=== PATIENT | male | born 1940 | race Caucasian/White ===

== ENCOUNTER → 2017-02-04 | Outpatient (CLI) | payer OTHER ==
[2017-02-04 12:42] LABS: CALCIUM 9.2 mg/dl (8.5-10.1)
[2017-02-04 12:47] LABS: BLOOD UREA NITROGEN 20 mg/dl (7-18); BUN/CREATININE RATIO 16.9 (10-20); CARBON DIOXIDE 27 mmol/L (21-32); CHLORIDE 105 mmol/L (98-107); CHOLESTEROL 144 mg/dl (0-200); GLUCOSE 130 mg/dl (70-99); POTASSIUM 3.9 mmol/L (3.5-5.1); SODIUM 139 mmol/L (136-145)
[2017-02-04 12:53] LABS: ESTIMATED AVERAGE GLUCOSE 146 mg/dl; HA1C FLAG Normal (Normal)
[2017-02-04 12:55] LABS: CHOLESTEROL/HDL RATIO 3.6; HDL CHOLESTEROL 40 mg/dl; LDL CHOLESTEROL CALCULATED 41 mg/dl; TRIGLYCERIDES 313 mg/dl (0-150); VERY LOW DENSITY LIPOPROT CALC 63 mg/dl
== END | disposition home or self-care (01) ==
LOC: C.LABPVFM 07:46
PROVIDERS: ATTEND Family Medicine
DX: I10 Essential (primary) hypertension (principal); E78.5 Hyperlipidemia, unspecified; E11.9 Type 2 diabetes mellitus without complications

== ENCOUNTER → 2017-07-12 | Outpatient (CLI) | payer OTHER ==
[2017-07-12 13:53] LABS: ALT/SGPT 24 U/L (12-78); AST/SGOT 14 U/L (15-37); BLOOD UREA NITROGEN 21 mg/dl (7-18); BUN/CREATININE RATIO 16.2 (10-20); CALCIUM 8.7 mg/dl (8.5-10.1); CARBON DIOXIDE 27 mmol/L (21-32); CHLORIDE 106 mmol/L (98-107); GLUCOSE 121 mg/dl (70-99); POTASSIUM 4.1 mmol/L (3.5-5.1); SODIUM 141 mmol/L (136-145)
[2017-07-12 13:57] LABS: ALKALINE PHOSPHATASE 48 U/L (45-117); CHOLESTEROL 150 mg/dl (0-200); CHOLESTEROL/HDL RATIO 4.1; HDL CHOLESTEROL 37 mg/dl; LDL CHOLESTEROL CALCULATED 41 mg/dl; TRIGLYCERIDES 361 mg/dl (0-150); VERY LOW DENSITY LIPOPROT CALC 72 mg/dl
== END | disposition home or self-care (01) ==
LOC: C.LABPVFM 07:27
PROVIDERS: ATTEND Family Medicine
DX: E78.5 Hyperlipidemia, unspecified (principal); E11.9 Type 2 diabetes mellitus without complications; I10 Essential (primary) hypertension

== ENCOUNTER → 2018-01-16 | Outpatient (CLI) | payer OTHER ==
[2018-01-16 13:14] LABS: HEMOGLOBIN A1C 6.9 % (4.5-5.6)
[2018-01-16 13:34] LABS: BLOOD UREA NITROGEN 22 mg/dl (7-18); CALCIUM 9.3 mg/dl (8.5-10.1); CARBON DIOXIDE 28 mmol/L (21-32); CREATININE 1.47 mg/dl (0.60-1.40); GLUCOSE 142 mg/dl (70-99); POTASSIUM 4.4 mmol/L (3.5-5.1); SODIUM 140 mmol/L (136-145)
[2018-01-16 13:38] LABS: CHOLESTEROL 158 mg/dl (0-200); LDL CHOLESTEROL CALCULATED 58 mg/dl
== END | disposition home or self-care (01) ==
LOC: C.LABPVFM 07:08
PROVIDERS: ATTEND Nurse Practitioner
DX: I10 Essential (primary) hypertension (principal); E11.9 Type 2 diabetes mellitus without complications; E78.5 Hyperlipidemia, unspecified; E78.2 Mixed hyperlipidemia

== ENCOUNTER 2025-08-16 15:54 | Inpatient (IN) ==
[2025-08-16 17:00] LABS: Hematocrit (blood only) 44.7 % (42.0-52.0); Hemoglobin 15.0 g/dl (14.0-18.0); Immature Granulocytes # (auto) 0.03 K/uL (0.01-0.20); Immature Granulocytes % (auto) 0.3 %; Mean Corpuscular Hemoglobin 31.8 pg (25.0-34.0); Mean Corpuscular Volume 94.7 fL (80.0-100.0); Platelet Count 223 K/uL (130-400); RDW Standard Deviation 46.2 fL (36.4-46.3); Red Blood Count 4.72 M/uL (4.70-6.10); White Blood Count 9.17 K/ul (4.8-10.8)
--- NOTE | 2025-08-16 17:00 | XRay Report ---
Chest radiograph, one view History: Chest pain Comparison: None Findings: Single AP view of the chest performed. No focal consolidation or pleural effusion. No pneumothorax. The cardiomediastinal silhouette is within normal limits. Normal pulmonary vascularity. No evidence for lymphadenopathy. No visualized bony or soft tissue abnormality. Impression: Normal chest radiograph Electronically signed by Navneet Jauregui 08-16-2025 4:59 PM
[2025-08-16 17:17] LABS: Alanine Aminotransferase 13 U/L (7-52); Albumin Globulin Ratio 1.2 (0.9-2); Albumin Level 4.0 gm/dl (3.4-5.0); Alkaline Phosphatase 58 U/L (34-104); Anion Gap 7 (3-11); Bilirubin,Total 0.3 mg/dl (0.2-1.0); Blood Urea Nitrogen 28 mg/dl (6-23); Calcium 9.5 mg/dl (8.6-10.3); Carbon Dioxide 25 mmol/L (21-32); Chloride 108 mmol/L (98-107); Globulin 3.3 gm/dl (2.5-4.0); Glucose 154 mg/dl (70-99(Fasting)); Potassium 4.5 mmol/L (3.5-5.1); Sodium 140 mmol/L (136-145); Total Protein 7.3 gm/dl (6.0-8.3)
[2025-08-16 17:29] LABS: INR 1.0 (0.9-1.1); Partial Thromboplastin Time 25 Seconds (21-31); Prothrombin Time 10.3 Seconds (9.0-12.0)
--- NOTE | 2025-08-16 18:27 | Emergency Department Note ---
Impression & Plan Chest pain, exertional, Elevated troponin, Hypertension ED Provider Note NAME: PATTY BOBO AGE: 84 SEX: M : 1940 ARRIVES VIA: Walk-In INFORMANT: Patient ED PROVIDER(S): Jalil Martinez MD CHIEF COMPLAINT: Chest/shoulder pain, referred PLAN: Disposition: Admit MEDICAL DECISION MAKING: The patient is a pleasant 84-year-old gentleman with a past medical history of hypertension, hyperlipidemia, BPH who presents to Emergency Department via walk- in for evaluation of left shoulder, arm, chest pain which began this morning when the patient was rearranging furniture on his deck. Patient was concerned and so presented to his outpatient provider who referred him to the emergency department. Patient denies any fevers, chills, cough, congestion. Patient reports that he has had similar episodes in the past several weeks with exertion. He denies chest pain at this time. Of note, the patient did arrive to emergency department during time of high volume, acuity and prolonged emergency department waiting times. Critical pathways initiated from triage. On evaluation the patient is in no distress, afebrile blood pressure 160/90s and vital signs otherwise stable. EKG demonstrates LVH, similar to prior and otherwise without overt acute ischemia. CXR negative for acute cardiopulmonary process per my personal preliminary review/interpretation. WBC, H/H and platelets within the limits. Chemistry without metabolic acidosis. Initial high sensitivity troponin 128 with repeat troponin rising to 350. Full dose aspirin was administered though patient denies chest pain at this time. Given the patient's elevated troponin and report of exertional chest pain he does agree plan for admission for further management. Case was discussed with Dr. Dickson, [facility] hospitalist, who will evaluate the patient for admission. Further management per admitting team. Triage Nursing notes reviewed and agree them. Prior/external medical records reviewed Vital Signs: reviewed Differential diagnosis: Cardiac ischemia, aortic dissection, pulmonary embolism, pneumothorax, pneumonia, pericarditis, myocarditis, esophageal rupture, GERD, cholecystitis, pancreatitis, musculoskeletal, as well as other pathologies. ER treatment provided: See below. Diagnostics interpreted by me: ECG: Normal sinus rhythm, 80 bpm, LVH, no overt ST elevation or depression, QTc 438, QRS 116. Similar to August 04, 2021. Cardiac Monitoring: An order for continuous cardiac monitoring was placed and demonstrated normal sinus rhythm, 80 bpm, no ectopy Laboratory studies: See below Imaging studies: See below Consultation(s): Case was discussed with Dr. Dickson, [facility] hospitalist, who will evaluate the patient for admission. HPI: Per MDM. ROS: See above HPI for pertinent positives & negatives. A total of 10 systems reviewed and were otherwise negative. VITALS:See Below PHYSICAL EXAMINATION: GENERAL: Awake, alert, well-appearing, in no distress HENT: Normocephalic, atraumatic. Oropharynx with dry mucous membranes and otherwise unremarkable. EYES: Normal conjunctiva. Sclera non-icteric. NECK: Supple. No nuchal rigidity. FROM. No JVD. RESPIRATORY: Clear to auscultation. CARDIAC: Regular rate, normal rhythm. Extremities warm and well perfused. Pulses equal. ABDOMEN: Soft, non-distended. No tenderness to palpation. No rebound or guarding. No masses. MUSCULOSKELETAL: Chest examination reveals no tenderness. The back is symmetrical on inspection without obvious abnormality. There is no CVA tenderness to palpation. No joint edema. LOWER EXTREMITIES: Calves are equal size bilaterally and non-tender. No edema. No discoloration. NEURO: Normal sensorium. No sensory or motor deficits noted. SKIN: No rash or jaundice noted. 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 Lai, upcoming appt 08/13/21. Doppler 07/2021 [place] GERD (gastroesophageal reflux disease) Sciatica Surgical History History of surgery VOCAL CORD INJECTION-08/13/21 History of cataract surgery History of arthroscopic knee surgery History of colonoscopy Family History Mother Diabetes COPD (chronic obstructive pulmonary disease) Renal failure Uncle Myocardial infarction Other No family history of adverse response to anesthesia No family history of bleeding disorder Denies family history of Ovarian cancer Prostate cancer Breast cancer Colorectal cancer Social History Smoking Status: Current every day smoker Tobacco Type: Smokeless Tobacco (Dip or Chew) Second Hand Exposure: No; Do You Dip or Chew Tobacco: Yes; Hx Alcohol Use: Yes Hx Substance Use: No Preferred Language: Portuguese Communication Ability: Effective Visual Impairment: No Limitations Hearing Ability: Normal Senior Accounting Specialist Required: No Beliefs That Will Affect Care: None marital status: Current Living Situation: Spouse current occupational status: employed and retired current occupation: self employeed How many Children do You have: 1 Feels Safe at Home: Yes Safety Concerns: Feels Safe At This Time Childhood Exposure to Second-Hand Smoke: Yes Diet: regular caffeine: Yes Dental Care, Regularly: Yes Physical Activity Frequency: Daily Seatbelt Use: always Sunscreen Use: Yes (sometimes) Assistive Devices: Glasses Allergies Allergies Allergy/AdvReac Type Severity Reaction Status Date / Time No Known Allergies Allergy Verified 08/16/25 18:47 Home Meds Home Medications Medication Instructions Recorded Confirmed acetaminophen 325 mg capsule 325 mg PO Q6H PRN Pain 08/28/19 08/16/25 cholecalciferol (vitamin D3) 25 25 mcg PO Q OTHER DAY 12/01/21 08/16/25 mcg (1,000 unit) capsule Previous Rx's Medication Instructions Recorded lancets 30 gauge (Advocate Lancet) #100 ea 04/04/20 blood sugar diagnostic (OneTouch #100 ea 04/23/20 Ultra Blue Test Strip) aspirin 81 mg capsule 81 mg PO DAILY #90 caps 03/08/24 simvastatin 20 mg tablet 20 mg PO QAM #90 tabs 12/12/24 metformin 500 mg tablet 500 mg PO BID 100 days #200 tabs 06/06/25 lisinopril 40 mg tablet 40 mg PO DAILY #90 tabs 07/01/25 Results & Data (ED) Vital Signs Vital Signs - 24 hr 08/16/25 16:11 08/16/25 17:47 08/16/25 17:47 Temperature 36.6 C Temperature Source Temporal Artery Scan Pulse Rate 79 Pulse Rate [Apical] 56 L Respiratory Rate 18 20 Respiratory Effort / Characteristics Non-Labored Spontaneous Respiratory Depth Normal Normal Respiratory Pattern Regular Blood Pressure 169/98 H Blood Pressure [Left Arm] 160/98 H Blood Pressure Mean 121 Blood Pressure Mean [Left Arm] 118 Blood Pressure Position [Left Arm] Semi-fowlers Pulse Oximetry 98 98 98 Oxygen Delivery Method Room Air Room Air Room Air Sepsis Recent Fever Within 48 Hours No Sepsis New/Unexplained Change in Mental Status N/A Sepsis Action Taken by Nursing No Action Required 08/16/25 17:47 08/16/25 17:53 Temperature Temperature Source Pulse Rate 61 Pulse Rate [Apical] Respiratory Rate Respiratory Effort / Characteristics Respiratory Depth Respiratory Pattern Blood Pressure Blood Pressure [Left Arm] Blood Pressure Mean Blood Pressure Mean [Left Arm] Blood Pressure Position [Left Arm] Pulse Oximetry 98 Oxygen Delivery Method Room Air Sepsis Recent Fever Within 48 Hours Sepsis New/Unexplained Change in Mental Status Sepsis Action Taken by Nursing Laboratory Data Attestation: I reviewed the patient's lab results. 08/16/25 16:30 08/16/25 16:30 Lab Results 08/16/25 Range/Units 16:30 WBC 9.17 (4.8-10.8) K/ul RBC 4.72 (4.70-6.10) M/uL Hgb 15.0 (14.0-18.0) g/dl Hct 44.7 (42.0-52.0) % MCV 94.7 (80.0-100.0) fL MCH 31.8 (25.0-34.0) pg MCHC 33.6 (32.0-36.0) g/dL RDW Std Deviation 46.2 (36.4-46.3) fL RDW Coeff of Eunice 13.2 (11.5-14.5) % Plt Count 223 (130-400) K/uL MPV 10.5 (9.4-12.4) fL Immature Gran % (Auto) 0.3 % Neut % (Auto) 65.0 % Lymph % (Auto) 22.5 % Caldwell % (Auto) 6.5 % Eos % (Auto) 4.9 % Baso % (Auto) 0.8 % Neut # (Auto) 5.96 (1.40-6.50) K/uL Lymph # (Auto) 2.06 (1.20-3.40) K/uL Caldwell # (Auto) 0.60 H (0.11-0.59) K/uL Eos # (Auto) 0.45 (0.00-0.50) K/uL Baso # (Auto) 0.07 (0.00-0.20) K/uL Immature Gran # (Auto) 0.03 (0.01-0.20) K/uL PT 10.3 (9.0-12.0) Seconds INR 1.0 (0.9-1.1) APTT 25 (21-31) Seconds PTT Ratio 0.9 Sodium 140 (136-145) mmol/L Potassium 4.5 (3.5-5.1) mmol/L Chloride 108 H (98-107) mmol/L Carbon Dioxide 25 (21-32) mmol/L Anion Gap 7 (3-11) BUN 28 H (6-23) mg/dl Creatinine 1.32 (0.6-1.4) mg/dl Est Cr Clr Drug Dosing Not Reportable eGFR 53.52 BUN/Creatinine Ratio 21.2 H (10-20) Glucose 154 H (70-99(Fasting)) mg/dl Calcium 9.5 (8.6-10.3) mg/dl Magnesium 2.0 (1.7-2.4) mg/dl Total Bilirubin 0.3 (0.2-1.0) mg/dl AST 15 (13-39) U/L ALT 13 (7-52) U/L Alkaline Phosphatase 58 (34-104) U/L Troponin I High Sens 128.8 H* (0-20) pg/ml Total Protein 7.3 (6.0-8.3) gm/dl Albumin 4.0 (3.4-5.0) gm/dl Globulin 3.3 (2.5-4.0) gm/dl Albumin/Globulin Ratio 1.2 (0.9-2) TSH 1.764 (0.300-4.500) uIu/ml Administered Medications Simvastatin (Simvastatin 20 Mg Tab) 20 mg PO PM ANUJA Stop: 09/15/25 23:19 Last Admin: 08/16/25 23:34 Dose: 20 mg Documented By: SMD Discontinued Medications Aspirin (Aspirin Chew 324 Mg) 324 mg PO NOW STA Stop: 08/16/25 18:29 Last Admin: 08/16/25 18:34 Dose: 324 mg Documented By: jdl Imaging Data Radiologist's Impression: Chest X-Ray 08/16/25 16:15 Chest radiograph, one view History: Chest pain Comparison: None Findings: Single AP view of the chest performed. No focal consolidation or pleural effusion. No pneumothorax. The cardiomediastinal silhouette is within normal limits. Normal pulmonary vascularity. No evidence for lymphadenopathy. No visualized bony or soft tissue abnormality. Impression: Normal chest radiograph Electronically signed by Navneet Jauregui 08-16-2025 4:59 PM Discharge Plan Visit Data Chief Complaint: Cardiac Assessment Stated Complaint: PAIN UP AND DOWN ARMS, RN SUGGESTED EKG ED Provider: Jalil Martinez Discharge Problem: Chest pain, exertional, Elevated troponin, Hypertension Patient Disposition: Admitted As Inpatient Condition: Fair Discharge Instructions Interventions: ED Discharge Assessment Last Done: 08/16/25 22:48 Discharge Problem: Hypertension Qualifiers: Hypertension type: unspecified Qualified Code(s): I10 - Essential (primary) hypertension
[2025-08-16] MEDS: ASPIRIN CHEW 324 MG PO STA (18:34)
--- NOTE | 2025-08-16 19:22 | History & Physical Report ---
Date of Service August 16, 2025 Assessment & Plan (1) Elevated troponin: (2) Bilateral arm pain: (3) Type 2 DM with CKD stage 3 and hypertension: (4) Smokeless tobacco use: Plan Patient is an 84-year-old male with past medical history of carotid artery stenosis, GERD, type II DM, CKD stage III, HTN, BPH, tobacco use. Patient presented due to bilateral shoulder pain which has been ongoing for few weeks on exertion however is worse today and occurred at rest. He was referred in by his PCP. Workup in the ED revealed initial troponin 128.8 which up trended to 350.0. EKG without significant ischemic changes, appears to have LVH which is known in the past. He was given aspirin 325 mg p.o. in the ED and is being admitted for further cardiac workup. #BL arm pain/elevated troponin - currently pain free on admission. Trop 128.8 -> 350.0. EKG without significant ischemic changes, appears to have LVH which is known in the past. CXR negative. Heart score 8 = high risk. - K+ 4.5, mag 2.0 - TSH ordered for completeness - ASA chew 325 mg in ED, continue daily baby asa - Heart healthy diet - Troponin q6hr x 3 - lipid panel and A1C with AM labs - stress echocardiogram ordered - monitor on telemetry - EKG with chest pain as needed - will defer Heparin drip on admission - if patient becomes symptomatic significant trop elevation, consider heparin #Type II DMhold metformin, defer SSI as glucose currently stable. A1c with a.m. labs #HTN/HLDcontinue lisinopril, simvastatin, baby aspirin #Nicotine usechewing tobacco daily, declines nicotine patch on admission. VTE ppx: SCDs, low risk Dispo: PCU Admission and Anticipated Discharge Date Admission Date: 08/16/25 History of Present Illness Chief Complaint: cardiac assessment Primary Care Provider: PCP NO Patient is an 84-year-old male with past medical history of carotid artery stenosis, GERD, type II DM, CKD stage III, HTN, BPH, tobacco use. Patient presented due to bilateral shoulder pain that starts in the middle of his back which has been ongoing for few weeks however is worse today. He was referred in by his PCP. Workup in the ED revealed initial troponin 128.8 which up trended to 350.0. EKG without significant ischemic changes, appears to have LVH which is known in the past. He was given aspirin 325 mg p.o. in the ED and is being admitted for further cardiac workup. Patient seen at bedside with his present. He stated that over the past few weeks on exertion he gets bilateral arm pain which typically last for few hours and goes away with rest, even on both arms. He denies any chest pain, dyspnea, or dizziness with this. Today he was working outside to bring in all of the outdoor furniture when he was sitting at rest after and developed the bilateral arm pain. He went to [facility] who referred him to the ED. Patient stated the pain typically last for few hours and is currently relieved at time of admission. He denies any dizziness, lightheadedness, chest pain, dyspnea, dyspnea on exertion, chest pain on exertion, nausea, vomiting, abdominal pain. He does endorse intermittent diarrhea since he has been out of appointment, unchanged. Patient stated he did recently get over a cold, denies any flulike symptoms. He did get his flu and COVID shots 2 weeks ago. He does use chewing tobacco once or twice per day, declines need for nicotine patch at this time. He denies any alcohol use. He denies any personal history or family history of UT, stated his mother did of a heart condition however she was 90. He took all of his morning medications however is due for evening medications which includes statin and metformin. He wishes to be full code however would not want prolonged measures. Allergies Allergy/AdvReac Type Severity Reaction Status Date / Time No Known Allergies Allergy Verified 08/16/25 18:47 Home Medications Medication Instructions Recorded Confirmed Type acetaminophen 325 mg capsule 325 mg PO Q6H PRN Pain 08/28/19 08/16/25 History lancets 30 gauge (Advocate Lancet) #100 ea 04/04/20 12/04/24 Rx blood sugar diagnostic (OneTouch #100 ea 04/23/20 12/04/24 Rx Ultra Blue Test Strip) cholecalciferol (vitamin D3) 25 25 mcg PO Q OTHER DAY 12/01/21 08/16/25 History mcg (1,000 unit) capsule aspirin 81 mg capsule 81 mg PO DAILY #90 caps 03/08/24 08/16/25 Rx simvastatin 20 mg tablet 20 mg PO QAM #90 tabs 12/12/24 08/16/25 Rx metformin 500 mg tablet 500 mg PO BID 100 days #200 tabs 06/06/25 08/16/25 Rx lisinopril 40 mg tablet 40 mg PO DAILY #90 tabs 07/01/25 08/16/25 Rx Past Med/Surg History Problem List (Updated 08/16/25 @ 20:59 by Jalil Martinez MD) Elevated troponin (Acute) Chest pain, exertional (Acute) Bilateral arm pain Elevated troponin Osteoarthritis of left knee Bilateral hip pain Greater trochanteric pain syndrome Hip pain Knee pain 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) Arthritis (Chronic) Carotid stenosis Hyperlipidemia (Acute) BPH (benign prostatic hyperplasia) Multiple renal cysts Lightheaded Acquired deviated nasal septum Smokeless tobacco use (Acute) Elevated triglycerides with high cholesterol (Acute) Vitamin D deficiency Laryngitis, acute Dysphagia Oropharyngeal aspiration Pulmonary nodule Paralysis of left vocal cord Medical History Lyme borreliosis Encounter for pre-operative examination Osteoarthritis Carotid artery stenosis GERD (gastroesophageal reflux disease) Sciatica Surgical History History of surgery History of cataract surgery History of arthroscopic knee surgery History of colonoscopy Family History Mother Diabetes COPD (chronic obstructive pulmonary disease) Renal failure Uncle Myocardial infarction Other No family history of adverse response to anesthesia No family history of bleeding disorder Denies family history of Ovarian cancer Prostate cancer Breast cancer Colorectal cancer Social History (Updated 06/03/25 @ 07:58 by Jessica Centeno LPN) Smoking Status: Never smoker Tobacco Type: Smokeless Tobacco (Dip or Chew) Second Hand Exposure: No; Do You Dip or Chew Tobacco: Yes; Hx Alcohol Use: No Hx Substance Use: No Preferred Language: Croatian Communication Ability: Effective Visual Impairment: No Limitations Hearing Ability: Normal Rig Manager Required: No Beliefs That Will Affect Care: None marital status: Current Living Situation: Spouse current occupational status: employed and retired current occupation: self employeed How many Children do You have: 1 Feels Safe at Home: Yes Childhood Exposure to Second-Hand Smoke: Yes Diet: regular caffeine: Yes Dental Care, Regularly: Yes Physical Activity Frequency: Daily Seatbelt Use: always Sunscreen Use: Yes (sometimes) Assistive Devices: Glasses Review of Systems Review of Systems: see HPI Physical Exam Physical Exam: The patient is awake, alert and oriented 3, well developed and well nourished, normocephalic and atraumatic, in no acute distress. Non-toxic appearing. HEENT- EOMI, mucous membranes moist. Hearing grossly intact. Heart-normal S1 and S2. No murmurs, rubs or gallops. Lungs-clear bilaterally, no respiratory distress, no accessory muscle use. Abdomen-normal bowel sounds and soft. No ascites noted. Non-tender. Extremities- no clubbing, cyanosis, or edema. Rheumatologic-normal range of motion. Psychiatric-normal affect. Results & Data Results & Data Vital Signs (Past 12 Hours) Vital Signs Temp Pulse Pulse Resp BP BP Pulse Ox 08/16/25 17:53 61 08/16/25 17:47 98 08/16/25 17:47 98 08/16/25 17:47 56 L 20 160/98 H 98 08/16/25 16:11 36.6 C 79 18 169/98 H 98 O2 Del Method 08/16/25 17:53 08/16/25 17:47 Room Air 08/16/25 17:47 Room Air 08/16/25 17:47 Room Air 08/16/25 16:11 Room Air Laboratory Results reviewed cbc, cmp, troponin ordered mag and TSH Diagnostic Findings reviewed CXR Medications Administered ed - asa 325mg PO Code Status & VTE Plan Code Status full code VTE Prophylaxis Plan VTE Prophylaxis will be ordered: Yes Supervising Physician Co-Signing Physician Notes Patient seen and examined, chart reviewed, case discussed with ANUJ Wright and I agree with the assessment and plan as above. In brief, patient is a pleasant 84yo male with history of GERD, DM, HTN, CKD presenting with bilateral shoulder pain ongoing for several weeks. Initially exertional, now with worsening intensity and occurring at rest. On exam patient is resting comfortably in room A11B - NAD Hypertensive with blood pressure 165/96 Skin- intact, no rash HEENT - MMM, Neck supple Heart - +S1/S2, regular, no m/r/g, no reproducible chest wall pain Lungs - CTA anteriorly, no rales/rhonchi/wheezes Abd - soft, NT/ND Ext - warm, well perfused Labs and images reviewed Trop = 128.8 --> 350 CXR WNL EKG with NSR, left axis deviation, LVH, similar to prior EKG Assessment/Plan - concern for cardiac chest pain given progressive worsening, pain at rest. Elevated troponin. Patient presently chest pain free -Trend troponin -Will initiate heparin gtt if patient has recurrence of chest pain or if troponin continues to increase -Check 2D echo -Cardiology consultation appreciated -Remainder as above PG Care Time/CCT Total # of Minutes Spent Total Time Spent with Patient: Total time spent is greater than 50% in coordination of care (as documented) at patient's floor/unit and/or counseling patient: Coding Level of Care Code 53991 INT INP/OBS CARE 3/75MIN Diagnoses Elevated troponin R79.89 Bilateral arm pain M79.601; M79.602 Type 2 DM with CKD stage 3 and hypertension E11.22; I12.9; N18.3 Smokeless tobacco use Z72.0
[2025-08-16 19:44] LABS: Magnesium 2.0 mg/dl (1.7-2.4)
[2025-08-16 19:59] LABS: Thyroid Stimulating Hormone 1.764 uIu/ml (0.300-4.500)
[2025-08-16] MEDS ORDERED: MELATONIN 3 MG TAB PO PRN (23:20)
[2025-08-16] MEDS ORDERED: ACETAMINOPHEN 325 MG TAB PO PRN (23:20)
[2025-08-16] MEDS ORDERED: ONDANSETRON INJ 2 MG/ML 2 ML VIAL IV PRN (23:20)
[2025-08-16] MEDS ORDERED: DOCUSATE SODIUM 100 MG CAP PO PRN (23:20)
[2025-08-16] MEDS: SIMVASTATIN 20 MG TAB PO SCH (23:34)
[2025-08-17] MEDS: Heparin IV Adult Wt-Based Standard *NO* INITIAL Bolus Protocol IV STA (06:35)
[2025-08-17] MEDS: HEPARIN 25000 UNIT/500 ML D5W 25,000 UNITS/500 ML BAG IV SCH (06:38)
[2025-08-17 07:17] LABS: Hematocrit (blood only) 40.0 % (42.0-52.0); Hemoglobin 13.8 g/dl (14.0-18.0); Immature Granulocytes # (auto) 0.02 K/uL (0.01-0.20); Immature Granulocytes % (auto) 0.2 %; Mean Corpuscular Hemoglobin 32.2 pg (25.0-34.0); Mean Corpuscular Volume 93.5 fL (80.0-100.0); Platelet Count 186 K/uL (130-400); RDW Standard Deviation 45.5 fL (36.4-46.3); Red Blood Count 4.28 M/uL (4.70-6.10); White Blood Count 8.59 K/ul (4.8-10.8)
[2025-08-17 07:37] LABS: Alanine Aminotransferase 11.0 U/L (7-52); Albumin Globulin Ratio 1.3 (0.9-2); Albumin Level 3.7 gm/dl (3.4-5.0); Alkaline Phosphatase 46.0 U/L (34-104); Anion Gap 7.0 (3-11); Bilirubin,Total 0.6 mg/dl (0.2-1.0); Blood Urea Nitrogen 24.0 mg/dl (6-23); Calcium 9.1 mg/dl (8.6-10.3); Carbon Dioxide 25.0 mmol/L (21-32); Chloride 108.0 mmol/L (98-107); Cholesterol 137.0 mg/dl (0-200); Creatinine Clr Calc Pharmacy 47.8 ml/min; Globulin 2.9 gm/dl (2.5-4.0); Glucose 131.0 mg/dl (70-99(Fasting)); HDL Cholesterol 33.0 mg/dl; Magnesium 1.9 mg/dl (1.7-2.4); Potassium 4.2 mmol/L (3.5-5.1); Sodium 140.0 mmol/L (136-145); Total Protein 6.6 gm/dl (6.0-8.3); Triglycerides 287.0 mg/dl (0-150)
--- NOTE | 2025-08-17 08:14 | Hospitalist Progress Note ---
"Date of Service August 17, 2025 Assessment & Plan (1) NSTEMI (non-ST elevated myocardial infarction): (2) Elevated troponin: (3) Bilateral arm pain: (4) Type 2 DM with CKD stage 3 and hypertension: (5) Smokeless tobacco use: Plan Patient is an 84-year-old male with past medical history of carotid artery stenosis, GERD, type II DM, CKD stage III, HTN, BPH, tobacco use. Patient presented due to bilateral shoulder pain which has been ongoing for few weeks on exertion however is worse today and occurred at rest. He was referred in by his PCP. Workup in the ED revealed initial troponin 128.8 which up trended to 350.0. EKG without significant ischemic changes, appears to have LVH which is known in the past. He was given aspirin 325 mg p.o. in the ED and is being admitted for further cardiac workup. # Bilateral shoulder pain | suspected NSTEMI Patient is chest pain-free on admission and on 08/17 However, troponin trend: 128 -> 350 -> 625 -> 1291; trend q6h to peak EKG on 08/16 without significant ischemic changes Repeat EKG on 08/17 CXR negative Heart score 8 = high risk Keep K > 4, Mag > 2 Echocardiogram ordered, still pending on 08/17 Cardiology consult appreciated Fasting lipid panel revealed elevated VLDL at 57 and TGs at 287 Simvastatin 20 -> Atorvastatin 40 mg QAM Continue aspirin 81mg daily Start plavix 75mg QAM Start metoprolol succinate 25 mg p.o. BID Continuous telemetry monitoring EKG as needed for chest pain Continue IV heparin Likely will need a cardiac catheterization; will plan for Sunday 08/19 assuming patient remains hemodynamically stable, no STEMI on repeat EKGs, and no exacerbation of chest pain while in the hospital Will make NPO at midnight on 08/18 #Type II DM A1c at 6.9% on 08/17/2025 Hold metformin Loose SSI with target BSG range 110-140mg/dL, CF 50, carb ratio 15 T2DM diet BSG ACHS Adjust regimen as needed #HTN/HLD Continue lisinopril Atorvastatin (as above) #Nicotine use Chewing tobacco daily Declined nicotine patch on admission Disposition: Continued stay on MedSur telemetry Admission and Anticipated Discharge Date Admission Date: August 16, 2025 Supervising Physician Co-Signing Physician Notes Attending Attestation - Chart reviewed, care plan d/w KEVIN Delaney. I agree w/ the hameed components of his documentation. Vishal Flores MD Subjective Mr. Calhoun is in good spirits this morning. He is laughing and talking with his daughter on the phone when I entered the room. He reports he is chest pain-free at this time. His main concern is that he has been having bilateral shoulder pain with radiation down both arms that has been worsening over the past couple months. The episode that brought him into the hospital lasted 3 to 4 hours, and he does believe that the frequency and severity of this pain is increasing. He reports this pain has never come on at rest, but always happens with exertion. No PMH of RI, CVA/TIA, or PAD. He does have a positive family history for cardiac disease (mother of heart attack at 91 years old). No family members have at <65yo from cardiac issues to his knowledge. He also has history of HTN, HLD, DM, and is a chewing tobacco user. He denies smoking tobacco use. In regard to anticoagulation, he denies any reason why he could not be on heparin; no history of GI bleeds, brain bleeds, or bleeding disorders. He denies any recent falls, muscle strains, or injuries to his chest wall or shoulders. ROS: Patient endorses cough, and worsening bilateral shoulder pain rating down the arms whenever he is exerting himself. Patient denies chest pain at time of exam/at rest, rashes on the chest, tick bites, fevers overnight, chills, night sweats, lightheadedness when walking, headache, SOB, SILVA, abdominal pain, N/V/D, changes in urinary/bowel habits, or numbness or tingling going down the arms. Review of Systems Review of Systems: See HPI above Physical Exam Physical Exam: General: no acute distress; pleasant affect; non-toxic appearing; cooperative; frail-appearing; SpO2 97% on RA HEENT: normocephalic, atraumatic; PERRLA; vision and hearing intact Neck: supple; trachea midline Skin: warm, dry without signs of tenting; no cyanosis; no rashes, bruising, lesions, or erythema noted CV: chest wall NTP; RRR; S1/S2 normal; no murmurs/rubs/gallops; pulses intact and symmetric at radial, DP, and PT Lungs: no acute respiratory distress; symmetrical chest wall expansion; clear breath sounds across all lung marcos w/o adventitious sounds; no wheezing ABD: Soft, NTP; BS present; no rebound/guarding; no distention MSK: no tics or fasciculations; no edema noted in the LEs b/l, nonerythematous; 5/5 wad blanking press adjuster strength bilaterally Neuro: A&Ox3; normal mood and affect; fluent speech; sensation intact and symmetric in the UEs/LEs b/l Results & Data Results & Data Vital Signs (Past 12 Hours) Vital Signs Temp Pulse Pulse Pulse Resp BP Pulse Ox 08/17/25 03:09 36.6 C 61 18 127/77 97 08/16/25 23:26 62 08/16/25 23:15 08/16/25 23:15 36.4 C L 69 18 159/89 H 92 08/16/25 21:45 70 08/16/25 20:28 68 20 165/96 H 99 O2 Del Method 08/17/25 03:09 Room Air 08/16/25 23:26 08/16/25 23:15 Room Air 08/16/25 23:15 Room Air 08/16/25 21:45 08/16/25 20:28 Room Air PG Care Time/CCT Total # of Minutes Spent Total Time Spent with Patient: Total time spent is greater than 50% in coordination of care (as documented) at patient's floor/unit and/or counseling patient: Coding [place] [address] SUB INP/OBS CARE 3/50MIN Patient Type Established Medical Decision Making High Complexity Diagnoses NSTEMI (non-ST elevated myocardial infarction) I21.4 Elevated troponin R79.89 Bilateral arm pain M79.601; M79.602 Type 2 DM with CKD stage 3 and hypertension E11.22; I12.9; N18.3 Smokeless tobacco use Z72.0"
[2025-08-17] MEDS: ASPIRIN 81 MG ECTAB PO SCH (08:29)
[2025-08-17 08:39] LABS: Hemoglobin A1C 6.9 % (4.5-5.6)
--- NOTE | 2025-08-17 08:41 | Cardiology Consultation ---
Date of Consultation August 17, 2025 Assessment & Plan (1) Chest pain, exertional: (2) Elevated troponin: (3) Hyperlipidemia: Plan 1. Bilateral arm discomfort: Although he does not technically have chest discomfort, this arm and shoulder discomfort is almost certainly myocardial in origin. 2. Elevated troponin: This is consistent with an NSTEMI, however with only exertional symptoms I would favor elective evaluation rather than urgent. I have recommended a catheterization and I will plan for Tuesday. Of course if he has difficulty in the meantime we can do it urgently. I would continue heparin and I would add a beta-cayetano and clopidogrel. 3. Hyperlipidemia: Although he is on low-dose statin therapy his cholesterol is elevated and he should be on high dose therapy, I would recommend changing to atorvastatin 40 mg daily with plans to titrate to 80 regardless of cholesterol status. We would be treating both coronary disease and known carotid disease. History of Present Illness Reason for Consultation: Chest pain, elevated troponin Attending Physician: Vishal Flores MD History of Present Illness This is an 84-year-old male who presents with bilateral arm discomfort and has an elevated troponin. He has a background history of chronic kidney disease, hypertension and diabetes mellitus as well as hyperlipidemia and ongoing chewing tobacco use. He has had a carotid ultrasound in the past showing less than 50% stenoses bilaterally (last ultrasound October 2024) and he follows with vascular surgery (Dr. Lai). Historically he has had a number of cardiac tests including most recently a stress echo on March 09, 2024 which was negative for ischemia at 92% of his maxi mal predicted heart rate. His baseline echo showed normal left ventricular size and function with mild concentric left ventricular hypertrophy. The ejection fraction increased normally with exercise. He also had a cardiac event monitor which he wore from April 02, 2024 through May 01, 2024 which showed no significant abnormality, he had premature atrial and premature ventricular beats and brief runs of atrial tachycardia as well as first-degree AV block but nothing more than that. He has been on low-dose statin therapy and his last total cholesterol before admission on May 31, 2025 was 144 with an HDL of 37 (non-HDL cholesterol 107, slightly elevated), I believe this was only on simvastatin 20 mg daily. Repeat cholesterol measurements today are similar (137 and 33 respectively, non-HDL 104) triglycerides have also been elevated, 287 today. We need to adjust his cholesterol medications, I would recommend switching to high dose atorvastatin and increasing the dose regardless of his coronary status which is likely abnormal, he does have known carotid disease. Liver function tests are normal this admission. He presented on August 16, 2025 to the emergency room with exertional bilateral shoulder, arm and chest discomfort which occurred that morning with arranging furniture on his deck. He has had similar episodes over the last several weeks, however this episode was prolonged (3 to 4 hours) and he went to his PCP and was sent to the emergency room. He was pain-free in the emergency room. In the emergency room his initial troponin was 129 and increased to 350 while there. His presenting electrocardiogram showed sinus rhythm at 80 bpm with a T wave abnormality in aVL attributed to LVH, this was similar although a little bit more pronounced than in 2020. His troponin has continued to climb, 625 six hours after presentation and 1291 twelve hrs. after presentation. He was treated with aspirin, heparin and he has been on simvastatin which was continued. At the time of my evaluation he is feeling well, he describes the symptoms noted above and notes that they have occurred over the last several weeks, he did not notice it before. He has had none since admission. He still works, he owns a automotive garage in [place], but does not do much physical activity there. Allergies Allergy/AdvReac Type Severity Reaction Status Date / Time No Known Allergies Allergy Verified 08/16/25 18:47 Home Medications Medication Instructions Recorded Confirmed Type acetaminophen 325 mg capsule 325 mg PO Q6H PRN Pain 08/28/19 08/16/25 History lancets 30 gauge (Advocate Lancet) #100 ea 04/04/20 12/04/24 Rx blood sugar diagnostic (OneTouch #100 ea 04/23/20 12/04/24 Rx Ultra Blue Test Strip) cholecalciferol (vitamin D3) 25 25 mcg PO Q OTHER DAY 12/01/21 08/16/25 History mcg (1,000 unit) capsule aspirin 81 mg capsule 81 mg PO DAILY #90 caps 03/08/24 08/16/25 Rx simvastatin 20 mg tablet 20 mg PO QAM #90 tabs 12/12/24 08/16/25 Rx metformin 500 mg tablet 500 mg PO BID 100 days #200 tabs 06/06/25 08/16/25 Rx lisinopril 40 mg tablet 40 mg PO DAILY #90 tabs 07/01/25 08/16/25 Rx Patient History Medical History Lyme borreliosis Encounter for pre-operative examination Osteoarthritis Carotid artery stenosis recently Dx -- referred to Dr. Lai, upcoming appt 08/13/21. Doppler 07/2021 [place] GERD (gastroesophageal reflux disease) Sciatica Surgical History History of surgery VOCAL CORD INJECTION-08/13/21 History of cataract surgery History of arthroscopic knee surgery History of colonoscopy Family History Mother Diabetes COPD (chronic obstructive pulmonary disease) Renal failure Uncle Myocardial infarction Other No family history of adverse response to anesthesia No family history of bleeding disorder Denies family history of Ovarian cancer Prostate cancer Breast cancer Colorectal cancer Social History Smoking Status: Current every day smoker Tobacco Type: Smokeless Tobacco (Dip or Chew) Second Hand Exposure: No; Do You Dip or Chew Tobacco: Yes; Hx Alcohol Use: Yes Hx Substance Use: No Preferred Language: Armenian Communication Ability: Effective Visual Impairment: No Limitations Hearing Ability: Normal Field Counsel Required: No Beliefs That Will Affect Care: None marital status: Current Living Situation: Spouse current occupational status: employed and retired current occupation: self employeed How many Children do You have: 1 Feels Safe at Home: Yes Safety Concerns: Feels Safe At This Time Childhood Exposure to Second-Hand Smoke: Yes Diet: regular caffeine: Yes Dental Care, Regularly: Yes Physical Activity Frequency: Daily Seatbelt Use: always Sunscreen Use: Yes (sometimes) Assistive Devices: Glasses Review of Systems Review of Systems: All systems reviewed & are unremarkable except as noted in HPI & below Physical Exam Physical Exam: Constitutional: Alert, cooperative and in no distress resting in bed. HEENT: Unremarkable Neck: No jugular venous distention, carotid pulses are normal and equal bilaterally without bruits. Pulmonary: Clear to auscultation bilaterally. Cardiac: Regular rhythm with no murmur, gallop or rub. Abdomen: Soft, nontender with normal bowel sounds. Extremities: No edema. Neurologic: No focal findings. Skin: No rash, ecchymoses or petechiae. Results & Data Vital Signs (Past 12 Hours) Vital Signs Temp Pulse Pulse Pulse Resp BP Pulse Ox 08/17/25 03:09 36.6 C 61 18 127/77 97 08/16/25 23:26 62 08/16/25 23:15 08/16/25 23:15 36.4 C L 69 18 159/89 H 92 08/16/25 21:45 70 O2 Del Method 08/17/25 03:09 Room Air 08/16/25 23:26 08/16/25 23:15 Room Air 08/16/25 23:15 Room Air 08/16/25 21:45 Laboratory Results Cardiac Enzymes 08/16/25 08/16/25 08/17/25 Range/Units 16:30 Unknown 00:13 AST 15 (13-39) U/L Troponin I High Sens 128.8 H* 350.0 H* D 625.4 H* D (0-20) pg/ml 08/17/25 Range/Units 06:24 AST 18 (13-39) U/L Troponin I High Sens 1291.5 H* D (0-20) pg/ml Coagulation 08/16/25 Range/Units 16:30 PT 10.3 (9.0-12.0) Seconds APTT 25 (21-31) Seconds Lipids 08/17/25 Range/Units 06:24 Triglycerides 287 H (0-150) mg/dl Cholesterol 137 (0-200) mg/dl HDL Cholesterol 33 mg/dl Cholesterol/HDL Ratio 4.2 (0-5) CBC 08/16/25 08/17/25 Range/Units 16:30 06:24 WBC 9.17 8.59 (4.8-10.8) K/ul RBC 4.72 4.28 L (4.70-6.10) M/uL Hgb 15.0 13.8 L (14.0-18.0) g/dl Hct 44.7 40.0 L (42.0-52.0) % Plt Count 223 186 (130-400) K/uL Neut # (Auto) 5.96 5.21 (1.40-6.50) K/uL Lymph # (Auto) 2.06 2.17 (1.20-3.40) K/uL Traill # (Auto) 0.60 H 0.67 H (0.11-0.59) K/uL Eos # (Auto) 0.45 0.45 (0.00-0.50) K/uL Baso # (Auto) 0.07 0.07 (0.00-0.20) K/uL Comprehensive Metabolic Panel 08/16/25 08/17/25 Range/Units 16:30 06:24 Sodium 140 140 (136-145) mmol/L Potassium 4.5 4.2 (3.5-5.1) mmol/L Chloride 108 H 108 H (98-107) mmol/L Carbon Dioxide 25 25 (21-32) mmol/L BUN 28 H 24 H (6-23) mg/dl Creatinine 1.32 1.27 (0.6-1.4) mg/dl Glucose 154 H 131 H (70-99(Fasting)) mg/dl Calcium 9.5 9.1 (8.6-10.3) mg/dl AST 15 18 (13-39) U/L ALT 13 11 (7-52) U/L Alkaline Phosphatase 58 46 (34-104) U/L Total Protein 7.3 6.6 (6.0-8.3) gm/dl Albumin 4.0 3.7 (3.4-5.0) gm/dl Intake and Output 08/16/25 08/17/25 08/17/25 22:59 06:59 14:59 Intake Total 127.467 / 127.467 Output Total 400 / 400 Balance -272.533 / -272.533 Intake: IV 7.467 / 7.467 Heparin 13896 Unit/500 ml D5w 7.467 / 7.467 25,000 units In 500 ml @ 1 UNITS/HR 0.02 mls/hr IV .Q24H ANUJA Rx#:[id number] Oral 120 / 120 Output: Urine 400 / 400 Other: Weight 84 kg 85.5 kg Weight Measurement Method Built in Bedscale Standing Scale Diagnostic Findings Telemetry: Sinus rhythm, premature beats but no significant arrhythmia. PG Care Time/CCT Total # of Minutes Spent Total Time Spent with Patient: Total time spent is greater than 50% in coordination of care (as documented) at patient's floor/unit and/or counseling patient: Coding Level of Care Code 78282 INT INP/OBS CARE 75MIN Diagnoses Chest pain, exertional R07.9 Elevated troponin R79.89 Hyperlipidemia E78.5
[2025-08-17] MEDS: METOPROLOL TARTRATE 25 MG TAB PO SCH (10:46)
[2025-08-17] MEDS: CLOPIDOGREL BISULFATE 75 MG TAB PO SCH (10:47)
[2025-08-17] MEDS: MAGNESIUM SULFATE / D5W 1 GM/100 ML BAG IV ONE (10:52)
[2025-08-17] MEDS ORDERED: DEXTROSE 50% 50 ML SYRINGE IV PRN (10:56)
[2025-08-17] MEDS ORDERED: CARBOHYDRATES FOR HYPOGLYCEMIA PO PRN (10:56)
[2025-08-17] MEDS ORDERED: GLUCOSE 40% GEL 15 GM TUBE PO PRN (10:56)
[2025-08-17] MEDS ORDERED: GLUCOSE 10 TAB/TUBE PO PRN (10:56)
[2025-08-17] MEDS ORDERED: GLUCAGON FOR INJ 1 MG VIAL SQ PRN (10:56)
[2025-08-17] MEDS: INSULIN ASPART PER UNIT CHARGE SC SCH (13:02)
[2025-08-17 13:40] LABS: ANTI-Xa, UFH(UnfractionatedHep 0.58 IU/ml (0.3-0.7)
--- NOTE | 2025-08-17 14:30 | XCELERA ---
[id number]
[2025-08-17] MEDS: ATORVASTATIN 40 MG TAB PO SCH (20:42)
[2025-08-18 07:33] LABS: ANTI-Xa, UFH(UnfractionatedHep 0.90 IU/ml (0.3-0.7)
--- NOTE | 2025-08-18 08:00 | Hospitalist Progress Note ---
Date of Service August 18, 2025 Assessment & Plan (1) NSTEMI (non-ST elevated myocardial infarction): (2) Elevated troponin: (3) Bilateral arm pain: (4) Type 2 DM with CKD stage 3 and hypertension: (5) Smokeless tobacco use: Plan Patient is an 84-year-old male with past medical history of carotid artery stenosis, GERD, type II DM, CKD stage III, HTN, BPH, tobacco use. Patient presented due to bilateral shoulder pain which has been ongoing for few weeks on exertion however is worse today and occurred at rest. He was referred in by his PCP. Workup in the ED revealed initial troponin 128.8 which up trended to 350.0. EKG without significant ischemic changes, appears to have LVH which is known in the past. He was given aspirin 325 mg p.o. in the ED and is being admitted for further cardiac workup. # Bilateral shoulder pain | suspected NSTEMI Patient has remained chest pain-free throughout his hospital stay However, troponin continues to uptrend: Most recently 193 EKG on 08/16 without significant ischemic changes Repeat on EKG 08/[address] elevation/Q waves concerning for ischemic changes CXR negative Heart score 8 = high risk Keep K > 4, Mag > 2 Echocardiogram revealed LVEF 55 to 60% without regional wall motion abnormaliti es; no significant change from 03/09/2024 Cardiology consult appreciated Patient's findings are consistent with NSTEMI, and we will plan for an elective cardiac catheterization on 08/19 assuming he remains hemodynamically stable without chest pain N.p.o. at midnight on 08/18 Atorvastatin 40 mg QAM Aspirin 81mg daily Started plavix 75mg QAM Started metoprolol succinate 25 mg p.o. BID Continuous telemetry monitoring EKG as needed for chest pain Continue IV heparin #Type II DM A1c at 6.9% on 08/17/2025 Hold metformin Loose SSI with target BSG range 110-140mg/dL, CF 50, carb ratio 15 T2DM diet BSG ACHS Adjust regimen as needed #HTN/HLD Continue lisinopril Atorvastatin (as above) #Nicotine use Chewing tobacco daily Declined nicotine patch on admission Disposition: Continued stay on MedSurg telemetry Admission and Anticipated Discharge Date Admission Date: August 17, 2025 Supervising Physician Co-Signing Physician Notes Attending Attestation - Chart reviewed, care plan d/w KEVIN Delaney. I agree w/ the hameed components of his documentation. Vishal Flores MD Subjective Mr. Calhoun is in good spirits this morning. He reports he is asymptomatic at this time. His only complaint, is that he has to "look around" his IV stand whenever he has to get up to use the restroom. He denies ever having chest pain, and reports he has had no recurrence of bilateral shoulder pain since being in the hospital. No SILVA when up ambulating around the room. He does report that he exercises a lot at baseline, and has to climb up large hills while he is out hunting. He reports his last bowel movement was on Thursday 08/16, and he has not had any blood in his urine/stool; no melena. ROS: Patient denies fevers overnight, chills, chest pain, bilateral shoulder pain, jaw pain, SOB at rest, SILVA, pleuritic CP, cough, abdominal pain, N/V/D, melena, or changes in urinary/bowel habits. Review of Systems Review of Systems: See HPI above Physical Exam Physical Exam: General: no acute distress; pleasant affect; sitting upright in his chair, conversing with his neighbor in the room; non-toxic appearing; cooperative; frail-appearing; SpO2 96% on RA HEENT: normocephalic, atraumatic; PERRLA; vision and hearing intact Neck: supple; trachea midline Skin: warm, dry without signs of tenting; no cyanosis; no rashes, bruising, l esions, or erythema noted CV: chest wall NTP; RRR; S1/S2 normal; no murmurs/rubs/gallops; pulses intact and symmetric at radial, DP, and PT Lungs: no acute respiratory distress; symmetrical chest wall expansion; clear breath sounds across all lung marcos w/o adventitious sounds; no wheezing ABD: Soft, NTP; BS present; no rebound/guarding; no distention MSK: no tics or fasciculations; no edema noted in the LEs b/l, nonerythematous; 5/5 engineer specialist strength bilaterally Neuro: A&Ox3; normal mood and affect; fluent speech; sensation intact and symmetric in the UEs/LEs b/l Results & Data Results & Data Vital Signs (Past 12 Hours) Vital Signs Temp Pulse Pulse Resp BP Pulse Ox O2 Del Method 11/09/25 07:30 65 08/18/25 04:13 36.6 C 66 18 117/75 95 Room Air 08/17/25 23:50 36.8 C 64 18 138/80 95 Room Air 08/17/25 21:48 61 PG Care Time/CCT Total # of Minutes Spent Total Time Spent with Patient: Total time spent is greater than 50% in coordination of care (as documented) at patient's floor/unit and/or counseling patient: Coding [place] [address] SUB INP/OBS CARE 3/50MIN Patient Type Established Medical Decision Making High Complexity Diagnoses NSTEMI (non-ST elevated myocardial infarction) I21.4 Elevated troponin R79.89 Bilateral arm pain M79.601; M79.602 Type 2 DM with CKD stage 3 and hypertension E11.22; I12.9; N18.3 Smokeless tobacco use Z72.0
[2025-08-18 08:17] LABS: Hematocrit (blood only) 40.6 % (42.0-52.0); Hemoglobin 13.9 g/dl (14.0-18.0); Mean Corpuscular Hemoglobin 32.3 pg (25.0-34.0); Mean Corpuscular Volume 94.2 fL (80.0-100.0); Platelet Count 176 K/uL (130-400); RDW Standard Deviation 45.5 fL (36.4-46.3); Red Blood Count 4.31 M/uL (4.70-6.10); White Blood Count 8.86 K/ul (4.8-10.8)
--- NOTE | 2025-08-18 09:16 | Cardiology Progress Note ---
Date of Service August 18, 2025 Assessment & Plan (1) Bilateral arm pain: (2) NSTEMI (non-ST elevated myocardial infarction): (3) Hyperlipidemia: Plan 1. Bilateral arm discomfort: Although he does not technically have chest discomfort, his arm and shoulder discomfort was almost certainly myocardial in origin. He has had no further chest discomfort despite a rising troponin and electrocardiographic changes following his ER presentation. 2. Elevated troponin: This is consistent with an NSTEMI, however with only exertional symptoms I still favor elective evaluation rather than urgent, although I am a little concerned about the rising troponin and the ECG changes. I have recommended a catheterization and I have him on the board for tomorrow, I discussed it with him and he is in agreement. Dr. Purcell would be doing the procedure. Of course if he has difficulty in the meantime we can do it urgently. I would continue heparin, beta-cayetano and clopidogrel. 3. Hyperlipidemia: Although he was on low-dose statin therapy his cholesterol is elevated and he should be on high dose therapy, agree with atorvastatin 40 mg daily with plans to titrate to 80 regardless of cholesterol status. We would be treating both coronary disease and known carotid disease. Admission and Anticipated Discharge Date Admission Date: August 17, 2025 Subjective He is feeling well today, he has had no further discomfort (which he gets in his arm and shoulders not his chest) since admission. He is sitting in his bedside, in good spirits and has no complaints. Physical Exam Physical Exam: Constitutional: Alert, cooperative and in no distress sitting at his bedside. HEENT: Unremarkable Neck: No jugular venous distention, carotid pulses are normal and equal bilaterally without bruits. Pulmonary: Clear to auscultation bilaterally. Cardiac: Regular rhythm with no murmur, gallop or rub. Abdomen: Soft, nontender with normal bowel sounds. Extremities: No edema. Neurologic: No focal findings. Skin: No rash, ecchymoses or petechiae. Results & Data Vital Signs (Past 12 Hours) Vital Signs Temp Pulse Pulse Resp BP Pulse Ox O2 Del Method 08/18/25 08:11 36.8 C 61 18 138/82 96 Room Air 08/18/25 07:30 65 08/18/25 04:13 36.6 C 66 18 117/75 95 Room Air 08/17/25 23:50 36.8 C 64 18 138/80 95 Room Air 08/17/25 21:48 61 Laboratory Results Cardiac Enzymes 08/17/25 08/17/25 08/18/25 Range/Units 12:51 17:59 05:46 Troponin I High Sens 1193.9 H* 1743.9 H* D 1939.5 H* (0-20) pg/ml CBC 08/18/25 Range/Units 05:46 WBC 8.86 (4.8-10.8) K/ul RBC 4.31 L (4.70-6.10) M/uL Hgb 13.9 L (14.0-18.0) g/dl Hct 40.6 L (42.0-52.0) % Plt Count 176 (130-400) K/uL Intake and Output 08/17/25 08/18/25 08/18/25 22:59 06:59 14:59 Intake Total 566.399 / 1108.466 26.133 / 26.133 Output Total 750 / 1050 Balance -183.601 / 58.466 26.133 / 26.133 Intake: IV 466.399 / 768.466 26.133 / 26.133 Heparin 40497 Unit/500 ml D5w 466.399 / 668.466 26.133 / 26.133 25,000 units In 500 ml @ 1,400 UNITS/HR 28 mls/hr IV .[id number] [facility] Rx#:[id number] Oral 100 / 340 Output: Urine 750 / 1050 Other: Weight 83.2 kg Weight Measurement Method Built in [facility] Diagnostic Findings Telemetry: Sinus rhythm, rate typically in the 60s, no significant arrhythmia. Electrocardiogram yesterday: Sinus rhythm, left anterior fascicular block, diffuse ST-T abnormalities with anterior ST elevation and what appears to be anterior Q waves. Anterior Q waves could be due to LAFB although I am concerned they could be ischemia related. Echocardiogram: Done yesterday, normal left ventricular systolic function with no regional wall motion abnormalities. Mild concentric left ventricular hypertrophy. PG Care Time/CCT Total # of Minutes Spent Total Time Spent with Patient: Total time spent is greater than 50% in coordination of care (as documented) at patient's floor/unit and/or counseling patient: Coding Level of Care Code 57846 SUB INP/OBS CARE 3/50MIN Diagnoses Bilateral arm pain M79.601; M79.602 NSTEMI (non-ST elevated myocardial infarction) I21.4 Hyperlipidemia E78.5
[2025-08-18 15:25] LABS: ANTI-Xa, UFH(UnfractionatedHep 0.59 IU/ml (0.3-0.7)
[2025-08-19 07:00] LABS: Hematocrit (blood only) 42.0 % (42.0-52.0); Hemoglobin 14.7 g/dl (14.0-18.0); Immature Granulocytes # (auto) 0.04 K/uL (0.01-0.20); Immature Granulocytes % (auto) 0.5 %; Mean Corpuscular Hemoglobin 32.7 pg (25.0-34.0); Mean Corpuscular Volume 93.3 fL (80.0-100.0); Platelet Count 189 K/uL (130-400); RDW Standard Deviation 44.9 fL (36.4-46.3); Red Blood Count 4.50 M/uL (4.70-6.10); White Blood Count 8.37 K/ul (4.8-10.8)
[2025-08-19 07:32] LABS: ANTI-Xa, UFH(UnfractionatedHep 0.55 IU/ml (0.3-0.7)
[2025-08-19 07:51] LABS: Anion Gap 9.0 (3-11); Blood Urea Nitrogen 28.0 mg/dl (6-23); Calcium 9.3 mg/dl (8.6-10.3); Carbon Dioxide 25.0 mmol/L (21-32); Chloride 106.0 mmol/L (98-107); Creatinine Clr Calc Pharmacy 40.8 ml/min; Glucose 128.0 mg/dl (70-99(Fasting)); Potassium 4.3 mmol/L (3.5-5.1); Sodium 140.0 mmol/L (136-145)
[2025-08-19] MEDS ORDERED: Nursing to Pharmacy Communication SCH ×2 (08:45→12:15)
--- NOTE | 2025-08-19 09:03 | Electrocardiogram Report ---
Test Reason : Blood Pressure : */* mmHG Vent. Rate : 80 BPM Atrial Rate : 80 BPM P-R Int : 166 ms QRS Dur : 116 ms QT Int : 380 ms P-R-T Axes : 24 -63 61 degrees QTcB Int : 438 ms Normal sinus rhythm Left axis deviation Left ventricular hypertrophy with QRS widening and repolarization abnormality ( R in aVL , Chris pr oduct ) Cannot rule out Septal infarct (cited on or before 04-Aug-2021) Abnormal ECG When compared with ECG of 04-Aug-2021 08:23, No significant change was found Confirmed by Cory Garcia ([id number] on 08/19/2025 9:02:43 AM Referred By: REFERRED SELF Confirmed By: Cory Garcia
--- NOTE | 2025-08-19 09:58 | Pre Anesthesia Assessment ---
Date of Service August 19, 2025 Pre Sedation Assessment Vital Signs Temp Pulse Pulse Resp BP BP Pulse Ox 08/19/25 09:49 67 18 155/83 H 96 08/19/25 08:26 36.5 C 90 20 135/78 96 08/19/25 07:31 62 08/19/25 04:43 36.5 C 59 L 20 120/79 97 08/19/25 00:31 36.8 C 60 20 125/78 95 08/18/25 22:00 60 08/18/25 20:13 36.6 C 56 L 20 161/84 H 98 08/18/25 15:46 36.6 C 62 18 129/76 97 08/18/25 15:31 68 08/18/25 12:09 36.3 C L 53 L 18 133/71 98 08/18/25 10:32 O2 Del Method 08/19/25 09:49 Room Air 08/19/25 08:26 Room Air 08/19/25 07:31 08/19/25 04:43 Room Air 08/19/25 00:31 Room Air 08/18/25 22:00 08/18/25 20:13 Room Air 08/18/25 15:46 Room Air 08/18/25 15:31 08/18/25 12:09 Room Air 08/18/25 10:32 Room Air Cardiovascular RRR, no murmur, no edema Respiratory normal respiratory effort, lungs clear to auscultation Pre-Sedation Airway Assessment Smoking Status: Current every day smoker Hx Sleep Apnea: No Short, Thick Neck: No Thyromental Distance: > or= 3.5 Finger Breadths Oral Cavity: + Dentures Mallampati Class: III ASA: ASA3 NPO Status Date of Last Intake of Fluids: 08/18/25 Time of Last Intake of Fluids: 18:00 Date of Last Intake of Solid Food: 08/18/25 Time of Last Intake of Solid Foods: 18:00 Notes The planned sedation has been discussed with the patient. Informed Consent was obtained. I have identified the patient, determined the appropriateness of sedation and have assessed the patient immediately prior to the procedure. All medicine(s) and interventions are by my order.
[2025-08-19] MEDS: NITROGLYCERIN/D5W 100MCG/ML 20ML SYR ONE (11:13)
[2025-08-19] MEDS: MIDAZOLAM HCL 1 MG/ML 2ML VIAL ONE (11:13)
[2025-08-19] MEDS ORDERED: ATROPINE SULFATE 0.1 MG/ML 10ML SYR IV PRN (11:25)
[2025-08-19] MEDS ORDERED: ONDANSETRON INJ 2 MG/ML 2 ML VIAL IV PRN (11:25)
[2025-08-19] MEDS ORDERED: SODIUM CHLORIDE 0.9% 500 ML IV PRN (11:25)
[2025-08-19] MEDS ORDERED: ACETAMINOPHEN 325 MG TAB PO PRN (11:25)
--- NOTE | 2025-08-19 11:25 | Post Anesthesia Assessment ---
Date of Service August 19, 2025 Post Sedation Assessment Vital Signs Temp Pulse Pulse Resp BP BP Pulse Ox 08/19/25 09:49 67 18 155/83 H 96 08/19/25 08:45 08/19/25 08:26 36.5 C 90 20 135/78 96 08/19/25 07:31 62 08/19/25 04:43 36.5 C 59 L 20 120/79 97 08/19/25 00:31 36.8 C 60 20 125/78 95 08/18/25 22:00 60 08/18/25 20:13 36.6 C 56 L 20 161/84 H 98 08/18/25 15:46 36.6 C 62 18 129/76 97 08/18/25 15:31 68 08/18/25 12:09 36.3 C L 53 L 18 133/71 98 O2 Del Method 08/19/25 09:49 Room Air 08/19/25 08:45 Room Air 08/19/25 08:26 Room Air 08/19/25 07:31 08/19/25 04:43 Room Air 08/19/25 00:31 Room Air 08/18/25 22:00 08/18/25 20:13 Room Air 08/18/25 15:46 Room Air 08/18/25 15:31 08/18/25 12:09 Room Air Recovery Score Activity: Moves 4 extremities Respiration: Deep Breath/Cough Circulation: +/-20% PreAnes Value Consciousness: Fully Awake Oxygen Saturation: > 92% On Room Air Discharge Sedation Level of Care: Fast Track Phase II Post Sedation Plan On clinical assessment, the patient appears to have tolerated the sedation without complications. Patient is recovering as anticipated. Patient will continue to be monitored by nursing and may be discharged when sedation discharge criteria are met per below protocol. Upon Completions of procedure up to 15 minutes continue every 5 minute vital signs and the P.A.R. score; then discharge to a Phase I or Fast Track to Phase II per the following guidelines: * Discharge Patient to appropriate Phase II area if PAR is 8 or greater or return to pre- procedure baseline. The post - procedure orders will be as directed. * If PAR score is less than 8 or not return to pre-procedure baseline then patient will follow Phase I monitoring till PAR is reached for Phase II. The Phase I may be done in procedure room or may call to secure a Phase I area. * If naloxone or flumazenil are used for reversal, hold in Phase I for continued monitoring from when last reversal dose was given for a minimum of 60 minutes or longer pending the nurse and/or physician discretion of patient condition before discharge to Phase II. Please call the Sedation Physician to re-evaluate and complete post-note for discharge to Phase II area. Do NOT discharge from procedure sedation or Phase 1 until post- sedation evaluation note is complete by procedure /sedation MD Sedation Discharge Instructions to be given to the patient at discharge to home.
[2025-08-19] MEDS: HEPARIN (PORCINE) 1000 UNIT/ML 10 ML (CATH LAB USE ONLY) ONE (11:28)
[2025-08-19] MEDS: OPTIRAY 350 ONE (11:28)
[2025-08-19] MEDS: INSULIN ASPART PER UNIT CHARGE SC SCH (12:18)
[2025-08-19 13:23] VITALS: RESP 16
[2025-08-19 13:50] VITALS: TEMP 97.2; O2SAT 96
--- NOTE | 2025-08-19 14:19 | Post Anesthesia Assessment ---
Date of Service August 19, 2025 Post Sedation Assessment Vital Signs Temp Pulse Pulse Resp BP BP Pulse Ox 08/19/25 13:40 36.2 C L 65 16 137/78 96 08/19/25 12:40 36.4 C L 66 16 152/80 H 95 08/19/25 12:31 36.3 C L 59 L 22 153/87 H 96 08/19/25 12:10 36.5 C 59 L 16 153/87 H 96 08/19/25 11:45 36.3 C L 63 16 151/88 H 96 08/19/25 11:30 60 16 140/81 94 08/19/25 09:49 67 18 155/83 H 96 08/19/25 08:45 08/19/25 08:26 36.5 C 90 20 135/78 96 08/19/25 07:31 62 08/19/25 04:43 36.5 C 59 L 20 120/79 97 08/19/25 00:31 36.8 C 60 20 125/78 95 08/18/25 22:00 60 08/18/25 20:13 36.6 C 56 L 20 161/84 H 98 08/18/25 15:46 36.6 C 62 18 129/76 97 08/18/25 15:31 68 O2 Del Method 08/19/25 13:40 Room Air 08/19/25 12:40 Room Air 08/19/25 12:31 Room Air 08/19/25 12:10 Room Air 08/19/25 11:45 Room Air 08/19/25 11:30 Room Air 08/19/25 09:49 Room Air 08/19/25 08:45 Room Air 08/19/25 08:26 Room Air 08/19/25 07:31 08/19/25 04:43 Room Air 08/19/25 00:31 Room Air 08/18/25 22:00 08/18/25 20:13 Room Air 08/18/25 15:46 Room Air 08/18/25 15:31 Recovery Score Activity: Moves 4 extremities Respiration: Deep Breath/Cough Circulation: +/-20% PreAnes Value Consciousness: Fully Awake Oxygen Saturation: > 92% On Room Air Post Anesthesia Score: 10 Discharge Sedation Level of Care: Fast Track Phase II Post Sedation Plan On clinical assessment, the patient appears to have tolerated the sedation wi thout complications. Patient is recovering as anticipated. Patient will continue to be monitored by nursing and may be discharged when sedation discharge criteria are met per below protocol. Upon Completions of procedure up to 15 minutes continue every 5 minute vital signs and the P.A.R. score; then discharge to a Phase I or Fast Track to Phase II per the following guidelines: * Discharge Patient to appropriate Phase II area if PAR is 8 or greater or return to pre- procedure baseline. The post - procedure orders will be as directed. * If PAR score is less than 8 or not return to pre-procedure baseline then patient will follow Phase I monitoring till PAR is reached for Phase II. The Phase I may be done in procedure room or may call to secure a Phase I area. * If naloxone or flumazenil are used for reversal, hold in Phase I for continued monitoring from when last reversal dose was given for a minimum of 60 minutes or longer pending the nurse and/or physician discretion of patient condition before discharge to Phase II. Please call the Sedation Physician to re-evaluate and complete post-note for discharge to Phase II area. Do NOT discharge from procedure sedation or Phase 1 until post- sedation evaluation note is complete by procedure /sedation MD Sedation Discharge Instructions to be given to the patient at discharge to home.
--- NOTE | 2025-08-19 14:57 | Hospitalist Progress Note ---
"Date of Service August 19, 2025 Assessment & Plan (1) NSTEMI (non-ST elevated myocardial infarction): (2) Elevated troponin: (3) Bilateral arm pain: (4) Type 2 DM with CKD stage 3 and hypertension: (5) Smokeless tobacco use: Plan Patient is an 84-year-old male with past medical history of carotid artery stenosis, GERD, type II DM, CKD stage III, HTN, BPH, tobacco use. Patient presented due to bilateral shoulder pain which has been ongoing for few weeks on exertion however is worse today and occurred at rest. He was referred in by his PCP. Workup in the ED revealed initial troponin 128.8 which up trended to 350.0. EKG without significant ischemic changes, appears to have LVH which is known in the past. He was given aspirin 325 mg p.o. in the ED and is being admitted for further cardiac workup. # Bilateral shoulder pain | suspected NSTEMI Patient has remained chest pain-free throughout his hospital stay However, troponin continues to uptrend: Most recently 193 EKG on 08/16 without significant ischemic changes Repeat on EKG 08/[address] elevation/Q waves concerning for ischemic changes CXR negative Heart score 8 = high risk Keep K > 4, Mag > 2 Echocardiogram revealed LVEF 55 to 60% without regional wall motion abnormalit ies; no significant change from 03/09/2024 Cardiology consult appreciated Patient's findings are consistent with NSTEMI, and we will plan for an elective cardiac catheterization on 08/19 assuming he remains hemodynamically stable without chest pain N.p.o. at midnight on 08/18 Atorvastatin 40 mg QAM Aspirin 81mg daily Started plavix 75mg QAM Started metoprolol succinate 25 mg p.o. BID Continuous telemetry monitoring EKG as needed for chest pain Continue IV heparin #Type II DM A1c at 6.9% on 08/17/2025 Hold metformin Loose SSI with target BSG range 110-140mg/dL, CF 50, carb ratio 15 T2DM diet BSG ACHS Adjust regimen as needed #HTN/HLD Continue lisinopril Atorvastatin (as above) #Nicotine use Chewing tobacco daily Declined nicotine patch on admission Disposition: Continued stay on [facility] telemetry Admission and Anticipated Discharge Date Admission Date: August 17, 2025 Results & Data Results & Data Vital Signs (Past 12 Hours) Vital Signs Temp Pulse Pulse Resp BP BP Pulse Ox 08/19/25 13:40 36.2 C L 65 16 137/78 96 08/19/25 12:40 36.4 C L 66 16 152/80 H 95 08/19/25 12:31 36.3 C L 59 L 22 153/87 H 96 08/19/25 12:10 36.5 C 59 L 16 153/87 H 96 08/19/25 11:45 36.3 C L 63 16 151/88 H 96 08/19/25 11:30 60 16 140/81 94 08/19/25 09:49 67 18 155/83 H 96 08/19/25 08:45 08/19/25 08:26 36.5 C 90 20 135/78 96 08/19/25 07:31 62 08/19/25 04:43 36.5 C 59 L 20 120/79 97 O2 Del Method 08/19/25 13:40 Room Air 08/19/25 12:40 Room Air 08/19/25 12:31 Room Air 08/19/25 12:10 Room Air 08/19/25 11:45 Room Air 08/19/25 11:30 Room Air 08/19/25 09:49 Room Air 08/19/25 08:45 Room Air 08/19/25 08:26 Room Air 08/19/25 07:31 08/19/25 04:43 Room Air PG Care Time/CCT Total # of Minutes Spent Total Time Spent with Patient: Total time spent is greater than 50% in coordination of care (as documented) at patient's floor/unit and/or counseling patient: Coding Diagnoses NSTEMI (non-ST elevated myocardial infarction) I21.4 Elevated troponin R79.89 Bilateral arm pain M79.601; M79.602 Type 2 DM with CKD stage 3 and hypertension E11.22; I12.9; N18.3 Smokeless tobacco use Z72.0"
--- NOTE | 2025-08-19 15:49 | Discharge Summary ---
"Discharge Summary Date of Service August 19, 2025 Principal Dx & Hospital Course #1 = Principal Diagnosis (1) NSTEMI (non-ST elevated myocardial infarction): (2) Elevated troponin: (3) Bilateral arm pain: (4) Type 2 DM with CKD stage 3 and hypertension: (5) Smokeless tobacco use: Plan Patient is an 84-year-old male with past medical history of carotid artery stenosis, GERD, type II DM, CKD stage III, HTN, BPH, tobacco use. Patient presented due to bilateral shoulder pain which has been ongoing for few weeks on exertion however worse day of admission on 08/16/2025. # Bilateral shoulder pain | suspected NSTEMI Patient has remained chest pain-free throughout his hospital stay Troponin peaked at 1939 and has since downtrended. EKG on 08/17 w/ anterior ST elevation/Q waves concerning for ischemic changes. CXR negative. Echocardiogram revealed LVEF 55 to 60% without regional wall motion abnormalities; no significant change from 03/09/2024 Cardiology consulted --> cath performed on 08/19 w/ severe disease of RCA, no intervention. Recommending metoprolol succinate 100mg & atorvastatin 40mg daily on discharge. did not require Plavix on dc. #Type II DM A1c at 6.9% on 08/17/2025 Resume outpatient medications on discharge. #HTN/HLD Continue lisinopril Atorvastatin (as above) #Nicotine use Chewing tobacco daily Declined nicotine patch on admission Discussed w/ cardiology 08/19, pt discharged home. Admission HPI Per Admitting Provider Patient is an 84-year-old male with past medical history of carotid artery stenosis, GERD, type II DM, CKD stage III, HTN, BPH, tobacco use. Patient presented due to bilateral shoulder pain that starts in the middle of his back which has been ongoing for few weeks however is worse today. He was referred in by his PCP. Workup in the ED revealed initial troponin 128.8 which up trended to 350.0. EKG without significant ischemic changes, appears to have LVH which is known in the past. He was given aspirin 325 mg p.o. in the ED and is being admitted for further cardiac workup. Patient seen at bedside with his present. He stated that over the past few weeks on exertion he gets bilateral arm pain which typically last for few hours and goes away with rest, even on both arms. He denies any chest pain, dyspnea, or dizziness with this. Today he was working outside to bring in all of the outdoor furniture when he was sitting at rest after and developed the bilateral arm pain. He went to [facility] who referred him to the ED. Patient stated the pain typically last for few hours and is currently relieved at time of admission. He denies any dizziness, lightheadedness, chest pain, dyspnea, dyspnea on exertion, chest pain on exertion, nausea, vomiting, abdominal pain. He does endorse intermittent diarrhea since he has been out of appointment, unchanged. Patient stated he did recently get over a cold, denies any flulike symptoms. He did get his flu and COVID shots 2 weeks ago. He does use chewing tobacco once or twice per day, declines need for nicotine patch at this time. He denies any alcohol use. He denies any personal history or family history of [place], stated his mother did of a heart condition however she was 90. He took all of his morning medications however is due for evening medications which includes statin and metformin. He wishes to be full code however would not want prolonged measures. Discharge Exam General: NAD, VS: BP 137/84; P65; R16; T36.2 Resp: normal respiratory effort, lungs clear to auscultation CV: RRR, no murmur Extremities: Moves all extremities, no edema Neuro: A&O x3, Skin: intact, no lesions noted Discharge Plan Discharge Items Patient Disposition: Home - Self-Care Reason For Visit: CARDIAC WORKUP, ELEVATED TROP Discharge Diagnosis: NSTEMI Condition on Discharge: Fair Activity: Resume your previous activity Non-emergency contact: Primary Care Provider and [employer] Supervisor Call non-emergency contact if: you have any medication questions and your symptoms worsen Follow-up/Referrals: NO,PCP [Other] Cory Garcia MD [Physician] - 08/28/25 10:00 am (Cardiology follow up: 08/28 @10am with KEVIN Vallejo) Diet: Heart Healthy Addtl Attending Provider Instructions: Mr. Calhoun, You were recently hospitalized secondary to shoulder pain. You were found to have an NSTEMI which is an ischemic event on your heart. You were evaluated by cardiology and had a cardiac catheterization by Dr. Purcell on 08/19/2025. You were found to have stenosis in your right coronary artery. Medication changes will be listed below for you. Medications: Your medication list has been reviewed and reconciled upon discharge to ensure accuracy and continuity of care. An updated list of all your medications is included with your hospital discharge paperwork. Please review this list closely, and make note of any changes. Your Simvastatin has been changed to Atorvastatin, an updated script was sent in to your pharmacy. New medication: Metoprolol succinate 100mg once daily in the morning.This medication will help your heart rate and your blood pressure. First dose will be tomorrow morning, 08/20/2025. Take your medications as instructed; do not skip a dose of your medicines. Make sure all of your doctors know every medicine you are taking (including bzsf-zdv-cyucibo medicines, vitamins, and supplements). Call your primary care provider before taking any new medicines (including over- the-counter medicines, vitamins, and supplements), because some of these may interact with your current medications, or may make your symptoms worse. Tell your primary care provider if you cannot afford your medications. Activity: You can do normal everyday activities as your body allows. Take rest breaks if you feel tired. Do not overexert. Stop activity if you have pain, shortness of breath or feel dizzy. Follow-up appointments: Make an appointment with your primary care physician within one week of discharge. A copy of this summary will be sent to them. Every time you see your primary care physician, or any other doctor, bring your medication list, and a list of questions. Please follow up with the announcer on discharge as well. Their phone number is above should you have questions or concerns. CONTACT YOUR PRIMARY CARE PROVIDER if you experience any of the following: Shortness of breath or difficulty breathing Fevers or chills Feeling tired with normal activity or experiencing dizziness or fainting Difficulty following your treatment plan, or difficulty taking medications CALL 911 OR GO TO THE EMERGENCY DEPARTMENT if you experience any of the following: Severe abdominal pain or nausea/vomiting Severe chest pain, or chest pain that radiates (moves) to your jaw or arm Sudden, severe shortness of breath or difficulty breathing Thank you for allowing us to participate in your care. Pending Studies at Discharge: No Stand-Alone Forms: [employer], Smoking Cessation Medications and DC Order Prescriptions: New atorvastatin 40 mg Tablet 40 mg PO HS Qty: 30 0RF metoprolol succinate 100 mg tablet extended release 24 hr 100 mg PO DAILY Qty: 30 0RF Continued metformin 500 mg tablet 500 mg PO BID 100 Days Qty: 200 3RF lisinopril 40 mg tablet 40 mg PO DAILY Qty: 90 3RF acetaminophen 325 mg capsule 325 mg PO Q6H PRN (Reason: Pain) cholecalciferol (vitamin D3) 25 mcg (1,000 unit) capsule 25 mcg PO Q OTHER DAY aspirin 81 mg capsule 81 mg PO DAILY Qty: 90 0RF Discontinued simvastatin 20 mg tablet 20 mg PO QAM Qty: 90 3RF Rx Instructions: TAKE 1 TABLET BY MOUTH ONCE DAILY IN THE EVENING FOR CHOLESTEROL No Action (DME) lancets [Advocate Lancet] 30 gauge misc See Rx Instructions .ROUTE .MEDSUPPLY Qty: 100 5RF Rx Instructions: AC and HS and prn (DME) OneTouch Ultra Blue Test Strip Strip See Dose Instructions .ROUTE .MEDSUPPLY Qty: 100 2RF Dose Instruction: As directed Rx Instructions: test once per day Discharge Orders: Discharge Order (Routine); Ordered 08/19/25 Ordered By: Holley Colbert/Other Patient Handouts: Managing Type 2 Diabetes Admission Data Admit Date/Time: 08/17/25 09:32 Attending Provider: Mark Burger Admit Provider: Ingris Dickson Primary Care Provider: Radha Sanchez Other Providers: Ingris Dickson; Cory Garcia Other Interventions: Discharge Summary Assessment (RN) Last Done: 08/19/25 16:45 Hospital Stay Data Consultations 08/16/25 18:44 ED Decision to Admit Stat 08/16/25 23:57 Consult Cardiology Routine Procedures Performed Operation Date: 08/19/25 08:00 Actual Procedures p Cineradiography w/Routine Exam - Ck Purcell MD, PhD p Cath, Coronaries ONLY (no LV) - Ck Purcell MD, PhD Diagnostic Imagining Performed 08/19/25 06:46 CL Cath Imgs for PACS use only Routine 08/19/25 09:48 CL Cath Imgs for PACS use only Routine Pending Results Patient Have Any Pending Studies at Discharge: No Discharge Instructions Given to Patient (Per Discharging Provider) Mr. Calhoun, Velasquez were recently hospitalized secondary to shoulder pain. You were found to have an NSTEMI which is an ischemic event on your heart. You were evaluated by cardiology and had a cardiac catheterization by Dr. Purcell on 08/19/2025. You were found to have stenosis in your right coronary artery. Medication changes will be listed below for you. Medications: Your medication list has been reviewed and reconciled upon discharge to ensure accuracy and continuity of care. An updated list of all your medications is incl uded with your hospital discharge paperwork. Please review this list closely, and make note of any changes. Your Simvastatin has been changed to Atorvastatin, an updated script was sent in to your pharmacy. New medication: Metoprolol succinate 100mg once daily in the morning.This medication will help your heart rate and your blood pressure. First dose will be tomorrow morning, 08/20/2025. Take your medications as instructed; do not skip a dose of your medicines. Make sure all of your doctors know every medicine you are taking (including shsu-phi-ebriobw medicines, vitamins, and supplements). Call your primary care provider before taking any new medicines (including over- the-counter medicines, vitamins, and supplements), because some of these may interact with your current medications, or may make your symptoms worse. Tell your primary care provider if you cannot afford your medications. Activity: You can do normal everyday activities as your body allows. Take rest breaks if you feel tired. Do not overexert. Stop activity if you have pain, shortness of breath or feel dizzy. Follow-up appointments: Make an appointment with your primary care physician within one week of discha rge. A copy of this summary will be sent to them. Every time you see your primary care physician, or any other doctor, bring your medication list, and a list of questions. Please follow up with the announcer on discharge as well. Their phone number is above should you have questions or concerns. CONTACT YOUR PRIMARY CARE PROVIDER if you experience any of the following: Shortness of breath or difficulty breathing Fevers or chills Feeling tired with normal activity or experiencing dizziness or fainting Difficulty following your treatment plan, or difficulty taking medications CALL 911 OR GO TO THE EMERGENCY DEPARTMENT if you experience any of the following: Severe abdominal pain or nausea/vomiting Severe chest pain, or chest pain that radiates (moves) to your jaw or arm Sudden, severe shortness of breath or difficulty breathing Thank you for allowing us to participate in your care. Supervising Physician Co-Signing Physician Notes The patient was not seen by me. The chart was reviewed. Case discussed with KEVIN Marin. Agree with assessment and plan Total Time Total Time Spent Total Time Spent (In Minutes): 55 Total Time Includes: Examination of the Patient, Discharge Planning, Medication Reconciliation and Communication With Other Providers Coding Level of Care Code 01410 INP/OBS DISCH >30 MIN Diagnoses NSTEMI (non-ST elevated myocardial infarction) I21.4 Elevated troponin R79.89 Bilateral arm pain M79.601; M79.602 Type 2 DM with CKD stage 3 and hypertension E11.22; I12.9; N18.3 Smokeless tobacco use Z72.0"
[2025-08-19 15:52] VITALS: BP 137/84
[2025-08-19] MEDS ORDERED: INSULIN ASPART PER UNIT CHARGE SC SCH (16:30)
[2025-08-19 16:33] VITALS: PULSE 65
[2025-08-19] MEDS: METOPROLOL TARTRATE 50 MG TAB PO ONE (16:33)
--- NOTE | 2025-08-20 10:03 | Electrocardiogram Report ---
Test Reason : Blood Pressure : */* mmHG Vent. Rate : 81 BPM Atrial Rate : 81 BPM P-R Int : 184 ms QRS Dur : 120 ms QT Int : 396 ms P-R-T Axes : 50 -64 -2 degrees QTcB Int : 460 ms Sinus rhythm with Premature atrial complexes Left anterior fascicular block Anterior infarct (cited on or before 04-Aug-2021) Abnormal ECG When compared with ECG of 16-Aug-2025 16:32, (unconfirmed) Premature atrial complexes are now Present T wave inversion no longer evident in Lateral leads Confirmed by Cory Garcia ([id number]) on 08/20/2025 10:03:06 AM Referred By: REFERRED SELF Confirmed By: Cory Garcia
--- NOTE | 2025-08-31 12:55 | Cardiac Catheterization ---
[facility] Data: Prop Cutter Cardiac Status Clinical evaluation leading to the procedure CAD Presenation: Non STEMI Anginal Classification: CCS IV Heart Failure: No Cardiogenic Shock within 24 Hours: No Cardiac Arrest within 24 Hours: No Imaging Studies Past 6 Months: Yes Stress Studies Past 6 Months: Yes (echo) Coronary Anatomy Left Main (% Stenosis): Distal (20%) LAD (% Stenosis): Proximal (20%) and Distal (70 and 90%) D1 (% Stenosis): Proximal (80%) Circumflex (% Stenosis): Normal OM1 (% Stenosis): Proximal (90-95%) OM2 (% Stenosis): Proximal (100% MUSIC INTERN) RCA (% Stenosis): Proximal (100%, MUSIC INTERN with bridging collaterals) and Mid (80- 90%) R PDA (% Stenosis): Proximal (99% chronic subtotal) R PL1 (% Stenosis): Proximal (70%) Diagnostic Physicians Name: Ck Purcell MD, PhD Closure Device Percutaneous Entry Location: Radial and femoral Closure Device: Angio-Seal and Radial Band Recommendations: Medical Therapy and/or Counseling and CABG Cardiac Cath Procedure Full Procedure Date August 19, 2025 Pre-Procedure Diagnosis Pre-Procedure Diagnosis: Non STEMI AUC Score AUC Score: 07 Post-Procedure Diagnosis Post-Procedure Diagnosis: Severe CAD Procedure(s) Performed Procedure(s) Performed: Coronary Angiography and Ultrasound Guided Vascular Access Transportation Aide Ck Purcell MD, PhD Estimated Blood Loss Estimated Blood Loss: 10 cc Medication(s) Medication(s): Fentanyl, Heparin, Lidocaine 1%, Nicardipine, Nitroglycerin and Versed Summary of Findings Brief description: Patient was brought to the cardiac catheterization suite where he was shaved and prepped in a sterile fashion. Sedated using IV Versed and fentanyl. Soft tissue the right wrist were anesthetized using 2 mL of 1% Xylocaine. Right radial accessed with a modified Seldinger technique and a 6 Micronesian radial artery glide sheath placed. Patient provided anticoagulation with IV heparin and antispasmodics including nicardipine and nitroglycerin. All catheters advanced and exchanged over a 0.035 J-tip wire. Attempted left coronary and right coronary angiography with a 5 Micronesian [place] 4 diagnostic catheter. Unsuccessful because of tortuosity. Also attempted 5 Micronesian JL 3.5 and 5 Micronesian JR4 diagnostic catheters also without success because of tortuosity. Decision was made to reaccess at the right femoral artery. Soft tissue of the right groin were anesthetized using 10 mL of 1% Xylocaine. Using ultrasound for guidance (image saved), right femoral artery was accessed and a 5 Micronesian femoral artery sheath was placed. All catheters were advanced and exchanged over a 0.035 J-tip wire. Left coronary angiography attempted with 5 Micronesian JL 4, and both 5 Micronesian EBU 3.0, 5 Micronesian EBU 3.5 guide catheters. Right coronary angiography in orthogonal views with a 5 Micronesian JR4 diagnostic catheter. Catheter removed. 5 Micronesian femoral artery sheath was increased to a 6 Micronesian femoral artery sheath over the wire. Left coronary angiography in orthogonal views with a 6 Micronesian EBU 4.0 catheter was removed. A limited femoral artery angiography was performed to evaluate for closure. Findings were favorable, therefore, the femoral artery sheath was exchanged for a 6 Micronesian Angio-Seal closure device. This was deployed in the recommended fashion. We obtained immediate hemostasis and the patient remained hemodynamically stable. Radial artery sheath was removed and hemostasis obtained using a TR band. Again, patient was asymptomatic and stable. This ended the case. Coronary angiography findings: NHA-eqpzx-vvnqtdw vessel trifurcating into LAD, circumflex, and ramus. Mild less than 20% stenosis distally. LAD-large caliber and transapical. Gives a large branching first diagonal. LAD has proximal calcification with 20% stenosis. Distally there is tandem 70% and 95% stenosis. D1 has proximal 80% stenosis. Akeqv-nezgk-woztjjb. Proximal 70% stenosis and mid 50 to 60% stenosis LCx-large and probably nondominant. Proximal luminal irregularities. There is a very sharp angulated takeoff of the circumflex. First OM is medium caliber and long with proximal 95% stenosis. Second OM large caliber and chronically 100% occluded. Fills late via left to left collateralization. RCA-large and dominant. Proximal 100% chronic occlusion at the level of the RV marginal. The mid segment has severe diffuse disease and distally there is 80 to 90% stenosis. Appears to be some right to right collateralization through bridging collaterals. Branches distally into the PDA and branching posterolateral. PDA has subtotal occlusion. PLB with proximal 70% stenosis. Summary: 1. Severe multivessel coronary disease not amenable to PCI at this institution. Difficulty cannulating coronaries from the right radial artery approach which. 2. Guideline directed medical therapy for secondary prevention of coronary di sease is recommended. This includes aspirin, atorvastatin, and metoprolol succinate. Add an NORMA inhibitor/ARB as tolerated. 3. Recommend referral to tertiary center "heart team" as an outpatient re garding surgical versus percutaneous revascularization. Hemodynamics Rest Ao:: 112/74 mmHg Final Ao: 157/66 mmHg LV: Not performed Recommendations Recommendations: Medical Therapy and/or Counseling and CABG Radiation Exposure (mGy) 2997 mGy, fluoroscopy time 17.3 minutes Contrast (mls) 250 cc Anesthesia 2 mg Versed, 50 mcg fentanyl IV (start time 1025, end time 1120) Procedural Complication(s) None Disposition Prop Cutter Holding/Recovery I attest to the content of the Intraoperative Record and any orders documented therein. Any exceptions are noted below. [facility] Card Cath Procedure Codes Cardiac Catheterization Procedure 1: Cardiovascular Cath Procedures: 64196 Coronaries Therapeutic Services & Ancillary Procedure 1: Cardiovascular Tx and Anc Procedures: 82628 Ultrasonic Guidance Vascular Access Moderate Sedation Procedure 1: Sedation/Anesthesia: 35825 Mod Sedation by the same physician;Init15 Min Child Age 5 & Up (Initial 15 minutes, start time 1025) Procedure 2: Sedation/Anesthesia: 01171 Mod Sedation by the same physician; Ea [id number] Minutes (Additional 40 minutes, end time 1120) PG Care Time/CCT Total # of Minutes Spent Total Time Spent with Patient: Total time spent is greater than 50% in coordination of care (as documented) at patient's floor/unit and/or counseling patient:
== END 2025-08-19 16:58 | disposition home or self-care (01) | DRG 282 ==
LOC: ED 15:54 → 2W 15:54 → SUATTDRO 19:45 → 2W 22:48 → SUATTDRO 08-17 09:32 → 2W 08-17 16:14 → 4W 08-19 11:56
PROC: CLB.CCO (2025-08-19 08:00)